=== PATIENT | male | born 1935 | race Caucasian/White ===

== ENCOUNTER 2017-06-26 18:58 | Inpatient (IN) | payer OTHER ==
[~2017-06-26] VITALS: Ht 185.4 cm; Wt 79.6 kg
[~2017-06-26 18:58] MED LIST: ACTOS15 MG PO; ACTOS30 MG PO; ALLOPURINOL100 MG PO; ASMANEX IH; ASPIRIN81 M1 PO; Asmanex Twisthaler 2 IH; CALCIUM 600 MG1 EACH PO; CALCIUM CITRAT200 MG PO; CARDIZEM CD,CA120 MG PO; CARDIZEM CD120 M1 PO; CARDIZEM CD120 MG PO; CARDIZEM LA180 MG PO; CARDIZEM120 MG PO; CEFDINIR300 MG PO; CEFTIN500 MG PO; CLONIDINE HCL0.1 MG PO; COUMADIN,JANTOVE4 MG PO; COUMADIN2 MG PO; COUMADIN4 MG PO; DIGITEK125 MC2 PO; DIGOX250 MCG PO; DIOVAN320 MG PO; DOXYCYCLINE HY100 MG PO; DUONEB 2.5-0.5 M3 ML IH; EMS NITROSTAT0.4 M1 SL; ERGOCALCIF50000 UNIT PO; FLOMAX0.4 MG PO; GENTAMICIN SULFA5 ML BOTH EYES; GLIPIZIDE ER2.5 M1 PO; GLIPIZIDE5 M1 PO; GLIPIZIDE5 MG PO; GLUCOPHAGE500 MG PO; GLUCOTROL5 MG PO; HYDROCHLOROTH12.5 M1 PO; HYDROCHLOROTH12.5 M2 PO; HYDROCHLOROTH12.5 M3 PO; JANTOVEN6 MG PO; KEFLEX500 MG PO; LANOXIN,DIGI0.125 MG PO; LANOXIN250 MCG PO; Levaquin PO; MICROZIDE12.5 M1 PO; MUCINEX1200 MG PO; NIACIN500 M1 PO; NIASPAN500 MG PO; NITROGLYCERIN; NITROSTAT0.4 MG SL; NIZORAL A-D120 ML TP; PHENERGAN-CODE120 ML PO; PREDNISONE10 MG PO; PREDNISONE20 MG PO; PROVENTIL HFA6.7 GM IH; SPIRIVA1 INHALATI IH; Tamiflu PO; VALSARTAN320 MG PO; VALSARTAN40 MG PO; VANCOCIN 250 M250 MG PO; VANCOCIN HCL125 MG PO; VANCOMYCIN125 MG/2.5 PO; VITAMIN D250000 UNIT PO; VITAMIN E400 UNIT PO; WARFARIN SODIUM4 MG PO; WARFARIN SODIUM5 MG PO; WARFARIN SODIUM6 MG PO
[2017-06-26 19:13] LABS: EOSINOPHIL (%) 1.4 % (0-5); EOSINOPHIL COUNT 0.1 K/uL (0-0.3); HEMATOCRIT 44.7 % (38.0-50.0); IMMATURE GRANULOCYTE (%) 0.3 % (0.0-0.7); LYMPHOCYTE COUNT 1.2 K/uL (1.0-2.8); MCH 29.2 PG (29.0-34.0); MCHC 33.3 G/DL (30.0-36.0); MCV 87.6 FL (86-99); MEAN PLAT.VOLUME 10.7 uM^3 (9.0-12.4); MONOCYTE (%) 8.4 % (3-12); MONOCYTE COUNT 0.5 K/uL (0-0.8); NEUTROPHIL (%) 68.9 % (45-76); PLATELET COUNT 83 K/uL (156-360); RBC DIS.WIDTH-CV 14.6 % (11.8-14.6); RBC DIS.WIDTH-SD 46.3 % (39-53); WHITE BLOOD COUNT 5.8 K/uL (4.1-10.2)
[2017-06-26 19:21] LABS: AMYLASE 78 IU/L (1-118); CHLORIDE 103 mEq/L (99-109); POTASSIUM 4.1 mEq/L (3.7-5.4); SODIUM 143 mEq/L (136-147)
[2017-06-26 19:23] LABS: GLUCOSE 111 mg/dL (70-99)
[2017-06-26 19:24] LABS: ANION GAP 9 MEQ/L (2-14)
[2017-06-26 19:26] LABS: SERUM ETHYL ALCOHOL < 10 mg/dL
[2017-06-26 19:27] LABS: GFR ESTIMATE (CALCULATED) 52 mL/min/
[2017-06-26 19:28] LABS: UREA NITROGEN (BUN) 25 mg/dL (9-23)
[2017-06-26 19:30] LABS: LIPASE 14 U/L (1.0-51.0)
[2017-06-26 19:34] LABS: INTER. NORMALIZED RATIO 2.3; PROTHROMBIN TIME 26.4 SEC (10.2-12.9)
[2017-06-26 19:35] LABS: TROP-I INTERPRETATION NEGATIVE; TROPONIN-I 0.03 ng/mL (0.0-0.30)
[2017-06-26 19:37] LABS: PTT 41.7 SEC (25-37)
[2017-06-26 20:50] LABS: ADD MIUA? NO; BILIRUBIN NEGATIVE; BLOOD NEGATIVE; COLOR YELLOW ((YELLOW)); GLUCOSE (STRIP) NEGATIVE; KETONES NEGATIVE; LEUKOCYTES NEGATIVE; NITRITE NEGATIVE; PROTEIN (STRIP) 30; UCUL ADDED? NO; UROBILINOGEN 0.2 MG/DL (0.2-1.0)
[2017-06-26 20:57] LABS: POINT-OF-CARE METER ID UU13113702
[2017-06-26 21:10] LABS: AMPHETAMINE NEGATIVE (500 ng/mL); BARBITURATES NEGATIVE (200 ng/mL); BENZODIAZEPINES NEGATIVE (150 ng/mL); COCAINE NEGATIVE (150 ng/mL); INTERNAL CONTROLS VALID? YES; METHADONE NEGATIVE (200 ng/mL); METHAMPHETAMINE NEGATIVE (500 ng/mL); OPIATES (MORPHINE) NEGATIVE (100 ng/mL); OXYCODONE NEGATIVE (100 ng/mL); PHENCYCLIDINE NEGATIVE (25 ng/mL); PROPOXYPHENE NEGATIVE (300 ng/mL); THC CANNABINOIDS NEGATIVE (50 ng/mL); TRICYCLIC ANTIDEPRESSANTS NEGATIVE (300 ng/mL)
[2017-06-26] MEDS ORDERED: VANCOMYCIN125 MG/2.5 PO (21:29)
[2017-06-26] MEDS ORDERED: PROBIOTIC1 EAC1 PO (21:32)
[2017-06-26] MEDS ORDERED: PROAIR HFA8.5 GM IH (21:33)
[2017-06-27 01:07] LABS: DIGOXIN 1.2 ng/mL (0.8-2.0)
[2017-06-27 01:36] VITALS: BP 161/79
[2017-06-27 03:10] LABS: HDL CHOLESTEROL 25 MG/DL (Desirable>=40); LDL CHOLESTEROL 61 mg/dL (Desirable<100); NON-HDL CHOLESTEROL 115 mg/dL (Desirable<160); SAMPLE HEMOLYSIS CHECK 0; SAMPLE ICTERIC CHECK 0; SAMPLE LIPEMIA CHECK 0; TOTAL CHOLESTEROL 140 mg/dL (Desirable<200); TRIGLYCERIDES 271 MG/DL (Normal: <150)
[2017-06-27 08:03] LABS: Estimated Average Glucose 123 mg/dL (70-123); HEMOGLOBIN A1c (GLYCOHEMOGLOB) 5.9 % HGB (Below 5.7)
[2017-06-27 08:49] VITALS: BP 176/73
[2017-06-27 10:17] LABS: HEMATOCRIT 50.9 % (38.0-50.0); MCH 29.4 PG (29.0-34.0); MCHC 33.4 G/DL (30.0-36.0); MCV 87.9 FL (86-99); MEAN PLAT.VOLUME 10.7 uM^3 (9.0-12.4); PLATELET COUNT 87 K/uL (156-360); RBC DIS.WIDTH-SD 47.9 % (39-53); RED BLOOD COUNT 5.79 M/uL (4.00-5.50); WHITE BLOOD COUNT 10.1 K/uL (4.1-10.2)
[2017-06-27 10:40] LABS: ALKALINE PHOSPHATASE 55 IU/L (3-129); ANION GAP 6 MEQ/L (2-14); CHLORIDE 101 MEQ/L (99-109); GFR ESTIMATE (CALCULATED) > 59 mL/min/; GLUCOSE 109 mg/dL (70-99); POTASSIUM 3.9 MEQ/L (3.7-5.4); SAMPLE HEMOLYSIS CHECK 0; SAMPLE ICTERIC CHECK 0; SAMPLE LIPEMIA CHECK 0; SODIUM 140 MEQ/L (136-147); TOTAL BILIRUBIN 2.4 MG/DL (0.0-1.0); UREA NITROGEN (BUN) 21 mg/dL (9-23)
[2017-06-27 11:05] LABS: INTER. NORMALIZED RATIO 2.2; PROTHROMBIN TIME 25.5 SEC (10.2-12.9)
[2017-06-27 11:53] VITALS: BP 149/84
[2017-06-27 15:00] VITALS: BP 146/89
[2017-06-27 19:24] VITALS: BP 138/82
[2017-06-27 23:36] VITALS: BP 194/89
[2017-06-28 04:09] VITALS: BP 182/94
[2017-06-28 05:34] LABS: EOSINOPHIL (%) 1.4 % (0-5); EOSINOPHIL COUNT 0.1 K/uL (0-0.3); HEMATOCRIT 46.1 % (38.0-50.0); IMMATURE GRANULOCYTE (%) 0.4 % (0.0-0.7); LYMPHOCYTE COUNT 1.2 K/uL (1.0-2.8); MCH 29.1 PG (29.0-34.0); MCHC 33.4 G/DL (30.0-36.0); MEAN PLAT.VOLUME 10.5 uM^3 (9.0-12.4); MONOCYTE (%) 6.8 % (3-12); MONOCYTE COUNT 0.5 K/uL (0-0.8); NEUTROPHIL (%) 75.7 % (45-76); PLATELET COUNT 77 K/uL (156-360); RBC DIS.WIDTH-CV 14.7 % (11.8-14.6); RBC DIS.WIDTH-SD 46.6 % (39-53); WHITE BLOOD COUNT 7.9 K/uL (4.1-10.2)
[2017-06-28 05:40] LABS: INTER. NORMALIZED RATIO 2.4; PROTHROMBIN TIME 27.8 SEC (10.2-12.9)
[2017-06-28 05:57] LABS: ERTH.SED.RATE 4 MM/HR (0-20)
[2017-06-28 06:15] LABS: ALKALINE PHOSPHATASE 43 IU/L (3-129); ANION GAP 5 MEQ/L (2-14); CHLORIDE 103 MEQ/L (99-109); GFR ESTIMATE (CALCULATED) > 59 mL/min/; GLUCOSE 108 mg/dL (70-99); POTASSIUM 4.1 MEQ/L (3.7-5.4); SAMPLE HEMOLYSIS CHECK 0; SAMPLE ICTERIC CHECK 0; SAMPLE LIPEMIA CHECK 0; SODIUM 139 MEQ/L (136-147); TOTAL BILIRUBIN 2.2 MG/DL (0.0-1.0); UREA NITROGEN (BUN) 24 mg/dL (9-23)
[2017-06-28 08:46] LABS: POINT-OF-CARE METER ID UU13113717
[2017-06-28 09:09] VITALS: BP 181/90
== END 2017-06-28 10:08 | disposition home or self-care (01) | DRG 65 ==
LOC: EME → EDBD 18:58 → EDOF 23:48 → 5SOUTH 23:48 → ENRESERV 23:51 → 5SOUTH 06-27 01:24
PROVIDERS: Emergency Medicine; Hospitalist; Nurse Practitioner Adult Health
DX: I63.9 Cerebral infarction, unspecified (principal); N17.9 Acute kidney failure, unspecified; A04.7 Enterocolitis due to Clostridium difficile; J44.9 Chronic obstructive pulmonary disease, unspecified; I48.2 Chronic atrial fibrillation; I13.0 Hypertensive heart and chronic kidney disease with heart failure and stage 1 through stage 4 chronic kidney disease, or unspecified chronic kidney disease; E11.22 Type 2 diabetes mellitus with diabetic chronic kidney disease; G47.33 Obstructive sleep apnea (adult) (pediatric); D69.6 Thrombocytopenia, unspecified; G81.94 Hemiplegia, unspecified affecting left nondominant side; N40.0 Benign prostatic hyperplasia without lower urinary tract symptoms; I15.8 Other secondary hypertension; I25.10 Atherosclerotic heart disease of native coronary artery without angina pectoris; E78.5 Hyperlipidemia, unspecified; I50.9 Heart failure, unspecified; I87.8 Other specified disorders of veins; K74.60 Unspecified cirrhosis of liver; N18.9 Chronic kidney disease, unspecified; M10.9 Gout, unspecified; K76.0 Fatty (change of) liver, not elsewhere classified; Z85.46 Personal history of malignant neoplasm of prostate; Z79.01 Long term (current) use of anticoagulants; Z87.891 Personal history of nicotine dependence; Z86.19 Personal history of other infectious and parasitic diseases; Z87.442 Personal history of urinary calculi; Z82.49 Family history of ischemic heart disease and other diseases of the circulatory system
CPT/HCPCS: 70450; 70551; 71020; 80048; 80053; 80061; 80162; 81003; 82150; 82948; 83036; 83690; 84484; 85025; 85027; 85610; 85651; 85730; 86900; 86901; 87081; 87493; 93005; 93880; 94640; 94640 76; 94660; 94799; 99202; 99281; 99285; G0480; J0360; J1815

== ENCOUNTER 2017-08-21 09:41 | Inpatient (IN) | payer OTHER ==
[~2017-08-21] VITALS: Ht 185.4 cm; Wt 83.6 kg
[~2017-08-21 09:41] MED LIST changes: +PROAIR HFA8.5 GM IH; +PROBIOTIC1 EAC1 PO
[2017-08-21 10:28] LABS: EOSINOPHIL (%) 1.4 % (0-5); EOSINOPHIL COUNT 0.1 K/uL (0-0.3); HEMATOCRIT 45.6 % (38.0-50.0); IMMATURE GRANULOCYTE (%) 0.2 % (0.0-0.7); INSTRUMENT ABS NEUTROPHIL CT 4.6 K/uL; LYMPHOCYTE COUNT 0.6 K/uL (1.0-2.8); MCH 29.2 PG (29.0-34.0); MCHC 32.7 G/DL (30.0-36.0); MCV 89.4 FL (86-99); MEAN PLAT.VOLUME 9.5 uM^3 (9.0-12.4); MONOCYTE (%) 10.2 % (3-12); MONOCYTE COUNT 0.6 K/uL (0-0.8); NEUTROPHIL COUNT 4.6 K/uL (1.8-6.4); PLATELET COUNT 70 K/uL (156-360); RBC DIS.WIDTH-CV 14.6 % (11.8-14.6); RBC DIS.WIDTH-SD 47.8 % (39-53); WHITE BLOOD COUNT 5.9 K/uL (4.1-10.2)
[2017-08-21 10:31] LABS: CARBON DIOXIDE (BICARBONATE) 35.2 MEQ/L (20-31)
[2017-08-21 10:34] LABS: INTER. NORMALIZED RATIO 2.2
[2017-08-21 10:36] LABS: CHLORIDE 102 mEq/L (99-109); SODIUM 138 mEq/L (136-147)
[2017-08-21 10:39] LABS: GLUCOSE 156 mg/dL (70-99)
[2017-08-21 10:40] LABS: ANION GAP 7 MEQ/L (2-14)
[2017-08-21 10:41] LABS: TOTAL BILIRUBIN 1.6 mg/dL (0.0-1.0)
[2017-08-21 10:42] LABS: ALKALINE PHOSPHATASE 51 IU/L (3-129); GFR ESTIMATE (CALCULATED) > 59 mL/min/
[2017-08-21 10:43] LABS: UREA NITROGEN (BUN) 24 mg/dL (9-23)
[2017-08-21 10:51] LABS: DIGOXIN 0.5 ng/mL (0.8-2.0)
[2017-08-21 12:32] LABS: TROP-I INTERPRETATION NEGATIVE; TROPONIN-I 0.03 ng/mL (0.0-0.30)
[2017-08-21] MEDS ORDERED: LO-DOSE ASPIRIN81 M2 PO (16:01)
[2017-08-21 16:55] VITALS: BP 148/86
[2017-08-21 17:23] LABS: POINT-OF-CARE METER ID UU14162513
[2017-08-21 19:01] LABS: TROP-I INTERPRETATION NEGATIVE; TROPONIN-I 0.04 ng/mL (0.0-0.30)
[2017-08-21 22:22] LABS: POINT-OF-CARE METER ID UU13113700
[2017-08-21 23:44] VITALS: BP 143/69
[2017-08-22 00:59] LABS: TROP-I INTERPRETATION NEGATIVE; TROPONIN-I 0.03 ng/mL (0.0-0.30)
[2017-08-22 03:49] VITALS: BP 141/84
[2017-08-22 04:52] LABS: METH RESISTANT S AUREUS PCR NEGATIVE (NEGATIVE)
[2017-08-22 05:02] LABS: PROBE CHECK PASS; SPECIMEN PROCESSING CONTROL PASS
[2017-08-22 05:54] LABS: PROTHROMBIN TIME 22.6 SEC (10.2-12.9)
[2017-08-22 08:45] LABS: POINT-OF-CARE METER ID UU14162513
[2017-08-22 08:54] VITALS: BP 133/63
[2017-08-22 11:56] VITALS: BP 150/70
[2017-08-22 13:01] LABS: POINT-OF-CARE METER ID UU13113700
[2017-08-22 16:48] VITALS: BP 137/71
[2017-08-22 17:45] LABS: POINT-OF-CARE METER ID UU13113700
[2017-08-22 20:00] VITALS: BP 172/78
[2017-08-22 21:25] VITALS: BP 140/72
[2017-08-22 22:03] LABS: POINT-OF-CARE METER ID UU13113831
[2017-08-23] VITALS: BP 179/82
[2017-08-23 04:00] VITALS: BP 139/74
[2017-08-23 05:57] LABS: EOSINOPHIL (%) 0 % (0-5); HEMATOCRIT 46.6 % (38.0-50.0); IMMATURE GRANULOCYTE (%) 1.2 % (0.0-0.7); IMMATURE GRANULOCYTE COUNT 0.3 K/uL; INSTRUMENT ABS NEUTROPHIL CT 20.7 K/uL; LYMPHOCYTE COUNT 0.7 K/uL (1.0-2.8); MCH 29.1 PG (29.0-34.0); MCHC 32.8 G/DL (30.0-36.0); MCV 88.8 FL (86-99); MEAN PLAT.VOLUME 10.3 uM^3 (9.0-12.4); MONOCYTE (%) 2.2 % (3-12); MONOCYTE COUNT 0.5 K/uL (0-0.8); NEUTROPHIL (%) 93.3 % (45-76); NEUTROPHIL COUNT 20.7 K/uL (1.8-6.4); PLATELET COUNT 97 K/uL (156-360); RBC DIS.WIDTH-CV 14.2 % (11.8-14.6); RED BLOOD COUNT 5.25 M/uL (4.00-5.50); WHITE BLOOD COUNT 22.2 K/uL (4.1-10.2)
[2017-08-23 06:08] LABS: INTER. NORMALIZED RATIO 2.9
[2017-08-23 06:17] LABS: PROTHROMBIN TIME 32.8 SEC (10.2-12.9)
[2017-08-23 06:19] LABS: ANION GAP 9 MEQ/L (2-14); CHLORIDE 99 MEQ/L (99-109); GFR ESTIMATE (CALCULATED) > 59 mL/min/; GLUCOSE 186 mg/dL (70-99); POTASSIUM 4.4 MEQ/L (3.7-5.4); SAMPLE HEMOLYSIS CHECK 0; SAMPLE ICTERIC CHECK 0; SAMPLE LIPEMIA CHECK 0; SODIUM 137 MEQ/L (136-147)
[2017-08-23 06:23] LABS: UREA NITROGEN (BUN) 44 mg/dL (9-23)
[2017-08-23 08:58] VITALS: BP 172/89
[2017-08-23 12:00] VITALS: BP 137/84
[2017-08-23 12:31] LABS: POINT-OF-CARE METER ID UU13113700
[2017-08-23] MEDS ORDERED: CEFTIN500 MG PO (13:04)
[2017-08-23] MEDS ORDERED: TESSALON200 MG PO (13:05)
[2017-08-23] MEDS ORDERED: MUCINEX600 MG PO (13:05)
[2017-08-23] MEDS ORDERED: PREDNISONE20 MG PO (13:06)
== END 2017-08-23 16:53 | disposition home or self-care (01) | DRG 191 ==
LOC: EME 09:41 → EDOF 15:31 → ENRESERV 15:32 → 5WEST 16:44
PROVIDERS: Internal Medicine; Physician Assistant
DX: J44.0 Chronic obstructive pulmonary disease with (acute) lower respiratory infection (principal); J20.9 Acute bronchitis, unspecified; J44.1 Chronic obstructive pulmonary disease with (acute) exacerbation; D69.6 Thrombocytopenia, unspecified; E11.9 Type 2 diabetes mellitus without complications; I48.2 Chronic atrial fibrillation; I10 Essential (primary) hypertension; K76.0 Fatty (change of) liver, not elsewhere classified; I34.1 Nonrheumatic mitral (valve) prolapse; K74.60 Unspecified cirrhosis of liver; I50.9 Heart failure, unspecified; N18.9 Chronic kidney disease, unspecified; G47.33 Obstructive sleep apnea (adult) (pediatric); M10.9 Gout, unspecified; E78.5 Hyperlipidemia, unspecified; I25.10 Atherosclerotic heart disease of native coronary artery without angina pectoris; Z85.46 Personal history of malignant neoplasm of prostate; Z87.891 Personal history of nicotine dependence; J45.901 Unspecified asthma with (acute) exacerbation; Z87.01 Personal history of pneumonia (recurrent); Z87.442 Personal history of urinary calculi; Z79.01 Long term (current) use of anticoagulants; Z80.3 Family history of malignant neoplasm of breast; Z82.49 Family history of ischemic heart disease and other diseases of the circulatory system
CPT/HCPCS: 71020; 71260; 80048; 80053; 80162; 82803; 82948; 83880; 84484; 85025; 85610; 87040; 87070; 87205; 87641; 93005; 94640; 94640 76; 94644; 94760; 99202; 99281; 99284; G0378; J0696; J1815; J2920; J2930; J7050; J7512

== ENCOUNTER 2017-11-18 15:30 | Emergency (ER) | payer OTHER ==
[~2017-11-18] VITALS: Ht 185.4 cm; Wt 83.6 kg
[~2017-11-18 15:30] MED LIST changes: +LO-DOSE ASPIRIN81 M2 PO; +MUCINEX600 MG PO; +TESSALON200 MG PO
[2017-11-18 16:50] LABS: HEMATOCRIT 46.9 % (38.0-50.0); HEMOGLOBIN 15.5 G/DL (12.5-16.6); MCH 29.8 PG (29.0-34.0); MCV 90.2 FL (86-99); PLATELET COUNT 89 K/uL (156-360); RBC DIS.WIDTH-CV 15.5 % (11.8-14.6); WHITE BLOOD COUNT 6.9 K/uL (4.1-10.2)
[2017-11-18 16:58] LABS: CHLORIDE 100 mEq/L (99-109); POTASSIUM 4.4 mEq/L (3.7-5.4); SODIUM 140 mEq/L (136-147)
[2017-11-18 17:00] LABS: GLUCOSE 111 mg/dL (70-99)
[2017-11-18 17:04] LABS: CREATININE 1.1 mg/dL (0.6-1.3); GFR ESTIMATE (CALCULATED) > 59 mL/min/ (58.99-99999)
[2017-11-18 17:05] LABS: UREA NITROGEN (BUN) 26 mg/dL (9-23)
[2017-11-18 19:07] LABS: ALBUMIN 3.9 g/dL (3.2-4.8)
[2017-11-18 19:10] LABS: TOTAL PROTEIN 6.3 g/dL (6.4-8.3)
[2017-11-18 19:12] LABS: TOTAL BILIRUBIN 1.1 mg/dL (0.0-1.0)
[2017-11-18 19:13] LABS: ALKALINE PHOSPHATASE 48 IU/L (3-129)
[2017-11-18 19:15] LABS: AST (GOT) 36 IU/L (2-34); DIRECT BILIRUBIN 0.3 mg/dL (0.0-0.3)
[2017-11-18 19:16] LABS: ALT (GPT) 26 IU/L (3-49); LIPASE 16 U/L (1.0-51.0)
[2017-11-18 19:37] VITALS: BP 150/88
== END 2017-11-18 19:39 | disposition home or self-care (01) ==
LOC: EME 15:30
DX: J90 Pleural effusion, not elsewhere classified (principal); K74.60 Unspecified cirrhosis of liver; K76.0 Fatty (change of) liver, not elsewhere classified; J44.9 Chronic obstructive pulmonary disease, unspecified; I12.9 Hypertensive chronic kidney disease with stage 1 through stage 4 chronic kidney disease, or unspecified chronic kidney disease; E11.22 Type 2 diabetes mellitus with diabetic chronic kidney disease; N18.9 Chronic kidney disease, unspecified; Z79.84 Long term (current) use of oral hypoglycemic drugs; Z79.01 Long term (current) use of anticoagulants; Z79.82 Long term (current) use of aspirin; Z90.49 Acquired absence of other specified parts of digestive tract; Z87.891 Personal history of nicotine dependence
CPT/HCPCS: 71046; 80048; 80076; 83690; 85027; 99281; 99284